=== PATIENT | male | born 1995 | race African-American/Black ===

== ENCOUNTER 2019-08-12 21:08 | Emergency (ER) | payer OTHER, SELFPAY ==
[~2019-08-12] VITALS: Ht 188 cm; Wt 117.9 kg
[2019-08-12 21:23] VITALS: BP 126/87
[2019-08-12] MEDS ORDERED: ACETAMINOPHEN 325 MG TAB PO ONE (22:15)
[2019-08-12 22:19] LABS: Basophils # (auto) 0.1 10 ^3/uL (0-0.2); Basophils % (auto) 0.5 % (0.0-2.0); Eosinophils # (auto) 0 10 ^3/uL (0-0.8); Hematocrit 43.2 % (41.0-53.0); Hemoglobin 14.7 g/dL (13.5-17.5); Lymphocytes # (auto) 1.2 10 ^3/uL (0.4-5.4); Lymphocytes % (auto) 8.9 % (10.0-50.0); Mean Corpuscular Hemoglobin 31.9 pg (28.0-32.0); Mean Corpuscular Volume 93.6 fL (80.0-100.0); Monocytes # (auto) 1.4 10 ^3/uL (0-1.3); Monocytes % (auto) 10.6 % (0.0-12.0); Neutrophils # (auto) 10.8 10 ^3/uL (1.6-8.6); Platelet Count (auto) 256 10^3/uL (140-450); Red Blood Cells 4.62 10^6/uL (4.5-5.90); Red Cell Distribution Width 12.4 % (11.8-14.3); White Blood Cell 13.5 10^3/uL (4.4-10.8)
[2019-08-12 22:37] LABS: Albumin 3.7 g/dL (3.4-5.0); BUN/Creatinine Ratio 9.9; Calcium 8.8 mg/dL (8.5-10.1); Potassium 3.6 mmol/L (3.5-5.1)
[2019-08-12 22:39] LABS: Bilirubin, Total 0.9 mg/dL (0.2-1.0); Total Protein 9.2 g/dL (6.4-8.2)
[2019-08-12] MEDS ORDERED: cefTRIAXone SOD 1,000 MG VL IM ONE (23:45)
== END 2019-08-13 01:33 | disposition home or self-care (01) ==
LOC: ER 21:08
DX: J03.80 Acute tonsillitis due to other specified organisms (principal); B96.89 Other specified bacterial agents as the cause of diseases classified elsewhere; Z20.828 Contact with and (suspected) exposure to other viral communicable diseases
CPT/HCPCS: 36415; 71045; 80053; 82728; 83605; 85025; 87040; 87804; 87880; 96372; 99284; J0696; U0003